=== PATIENT | male | born 1950 ===

== ENCOUNTER 2019-08-10 07:26 | Emergency (ER) | payer MEDICARE ==
[~2019-08-10] VITALS: Ht 182.9 cm; Wt 83.9 kg
[2019-08-10] MEDS ORDERED: LOVA40 PO (08:01)
[2019-08-10 09:09] LABS: Source, Urine Clean Catch
[2019-08-10 09:18] LABS: Bilirubin, Urine Neg (Neg); Blood, Urine Neg (Neg); Glucose Qualitative, Urine Neg (Neg); Ketones, Urine Neg (Neg); Leukocyte Esterase, Urine Neg (Neg); Nitrite, Urine Neg (Neg); Protein, Urine Neg (Neg); Specific Gravity, Urine 1.005 (1.003-1.022); Urobilinogen, Urine NORM (Normal)
[2019-08-10 09:30] LABS: Appearance, Urine Clear (Clear); Color, Urine Pale Yellow (P-Yellow)
[2019-08-10 09:39] LABS: BASOPHILS ABSOLUTE AUTO 0.06 K/mm3 (0.00-0.23); BASOPHILS PERCENT AUTO 1 % (0-2); EOSINOPHILS ABSOLUTE AUTO 0.02 K/mm3 (0.00-0.68); EOSINOPHILS PERCENT AUTO 0 % (0-6); Hematocrit 42.1 % (37.0-53.0); Hemoglobin 14.3 g/dL (13.5-17.5); IMMATURE GRAN ABSOLUTE AUTO 0.03 K/mm3 (0.00-0.10); IMMATURE GRAN PERCENT AUTO 0 % (0-1); LYMPHOCYTES ABSOLUTE AUTO 1.61 K/mm3 (0.84-5.20); LYMPHOCYTES PERCENT AUTO 15 % (21-46); MONOCYTES ABSOLUTE AUTO 0.57 K/mm3 (0.16-1.47); MONOCYTES PERCENT AUTO 5 % (4-13); Mean Corpuscular HGB 28.2 pg (26.0-34.0); Mean Corpuscular Volume 83 fL (80-100); Mean Platelet Volume 9.3 fL (9.1-12.4); NEUTROPHILS ABSOLUTE AUTO 8.39 K/mm3 (1.96-9.15); NEUTROPHILS PERCENT AUTO 79 % (41-73); Platelet Count 238 K/mm3 (150-400); RDW Coefficient Variation 13.1 % (11.7-14.2); RDW Standard Deviation 39.4 fL (35.1-46.3); Red Blood Cell Count 5.07 M/mm3 (4.30-5.90); White Blood Cell Count 10.68 K/mm3 (4.00-11.30)
[2019-08-10 09:58] LABS: Alanine Aminotransfer (ALT/SGP 18 U/L (12-78); Albumin, Blood 3.8 g/dL (3.4-5.0); Albumin/Globulin Ratio 1.1 (0.8-1.8); Alk Phos 114 U/L (50-136); Anion Gap 6 mmol/L (6-16); Aspartate Aminotrans (AST/SGOT 19 U/L (12-37); Bilirubin, Total 0.7 mg/dL (0.1-1.0); Blood Urea Nitrogen 12 mg/dL (8-24); Bun/Creatinine Ratio 12.8 (12.0-20.0); CO2, Blood 23 mmol/L (21-32); Calcium, Blood 9.3 mg/dL (8.5-10.1); Chloride, Blood 109 mmol/L (98-108); Creatinine, Blood 0.94 mg/dL (0.60-1.20); Globulin, Blood 3.4 g/dL (2.2-4.0); Glomerular Filtration Rate >60 (60-); Glucose, Blood 111 mg/dL (70-99); Potassium, Blood 3.7 mmol/L (3.5-5.5); Sodium, Blood 138 mmol/L (136-145); Total Protein, Blood 7.2 g/dL (6.4-8.2)
[2019-08-10] MEDS ORDERED: Flomax0.4 MG PO (10:10)
== END 2019-08-10 11:15 | disposition home or self-care (01) ==
LOC: ER 07:26
PROVIDERS: Physician Assistant
DX: R33.9 Retention of urine, unspecified (principal); Z88.8 Allergy status to other drugs, medicaments and biological substances; Z88.5 Allergy status to narcotic agent; Z79.899 Other long term (current) drug therapy
CPT/HCPCS: 51702; 51798; 80053; 81003; 85025; 99283-25

== ENCOUNTER 2021-05-12 12:48 | Inpatient (IN) | payer OTHER, MEDICARE ==
[~2021-05-12] VITALS: Ht 182.9 cm; Wt 83.9 kg
[~2021-05-12 12:48] MED LIST: Flomax0.4 MG PO; LOVA40 PO
[2021-05-12] MEDS ORDERED: ACET325 PO (13:30)
[2021-05-12] MEDS ORDERED: ENOX40I SC (13:31)
[2021-05-12] MEDS ORDERED: BISA10S PR (13:31)
[2021-05-12] MEDS ORDERED: ATOR40TA PO (13:31)
[2021-05-12] MEDS ORDERED: KEPPRA250 M2 PO (13:32)
[2021-05-12] MEDS ORDERED: LISI10 PO (13:32)
[2021-05-12] MEDS ORDERED: OXYC5 PO (13:35)
[2021-05-12 14:01] LABS: Hematocrit 31.6 % (37.0-53.0); Hemoglobin 10.3 g/dL (13.5-17.5); Mean Corpuscular HGB 30.7 pg (26.0-34.0); Mean Corpuscular HGB Conc 32.6 g/dL (31.5-36.5); Mean Corpuscular Volume 94 fL (80-100); Mean Platelet Volume 9.3 fL (9.1-12.4); Platelet Count 218 K/mm3 (150-400); RDW Coefficient Variation 14.2 % (11.7-14.2); RDW Standard Deviation 49.1 fL (35.1-46.3); Red Blood Cell Count 3.36 M/mm3 (4.30-5.90); White Blood Cell Count 8.63 K/mm3 (4.00-11.30)
[2021-05-12 14:27] LABS: Alanine Aminotransfer (ALT/SGP 16 U/L (12-78); Albumin, Blood 2.8 g/dL (3.4-5.0); Albumin/Globulin Ratio 0.8 (0.8-1.8); Alk Phos 113 U/L (50-136); Anion Gap 7 mmol/L (6-16); Aspartate Aminotrans (AST/SGOT 13 U/L (12-37); Bilirubin, Total 0.5 mg/dL (0.1-1.0); Blood Urea Nitrogen 15 mg/dL (8-24); CO2, Blood 27 mmol/L (21-32); Calcium, Blood 9.2 mg/dL (8.5-10.1); Chloride, Blood 105 mmol/L (98-108); Creatinine, Blood 0.79 mg/dL (0.60-1.20); Globulin, Blood 3.4 g/dL (2.2-4.0); Glomerular Filtration Rate >60 (60-); Glucose, Blood 82 mg/dL (70-99); Potassium, Blood 4.2 mmol/L (3.5-5.5); Sodium, Blood 139 mmol/L (136-145); Total Protein, Blood 6.2 g/dL (6.4-8.2); Troponin I <0.015 ng/mL (0.000-0.040)
[2021-05-12 14:35] LABS: Source, Urine Catheter
[2021-05-12 14:39] LABS: Appearance, Urine Hazy (Clear); Bilirubin, Urine Neg (Neg); Blood, Urine 3+ (Neg); Glucose Qualitative, Urine Neg (Neg); Ketones, Urine Neg (Neg); Leukocyte Esterase, Urine 3+ (Neg); Nitrite, Urine Pos (Neg); Protein, Urine 1+ (Neg); Urobilinogen, Urine NORM (Normal)
[2021-05-12 14:54] LABS: BASOPHILS ABSOLUTE MAN 0.08 K/mm3 (0.00-0.23); BASOPHILS PERCENT MAN 1 % (0-2); EOSINOPHILS PERCENT MAN 0 % (0-6); LYMPHOCYTES % ATYPICAL MANUAL 1 % (0-0); LYMPHOCYTES ABSOLUTE MAN 3.62 K/mm3 (0.84-5.20); LYMPHOCYTES PERCENT MAN 41 % (21-46); MONOCYTES ABSOLUTE MAN 0.17 K/mm3 (0.16-1.47); MONOCYTES PERCENT MAN 2 % (4-13); NEUTROPHILS ABSOLUTE MAN 4.74 K/mm3 (1.96-9.15); SEG NEUTROPHILS PERCENT MAN 55 % (41-73); TOTAL CELLS COUNTED 100
[2021-05-12 14:57] LABS: Color, Urine Pale Yellow (P-Yellow)
[2021-05-12 14:59] LABS: Amorphous Light (0-Heavy)
[2021-05-12 15:02] LABS: Red Blood Cells, Urine 0-2 /hpf (0-2); White Blood Cells, Urine TNTC /hpf (0-5)
[2021-05-12 15:03] LABS: Bacteria Many /hpf; Squamous Epithelial Cells Rare /hpf (Few); Transitional Epithelial Cells Rare /hpf (0-Rare)
[2021-05-12] MEDS ORDERED: DOCUZEN 8.6-501 EACH PO (16:12)
[2021-05-12] MEDS ORDERED: ARTIFICIAL SALIVA PO (16:13)
--- NOTE | 2021-05-12 19:22 | NUR ---
SHIFT SUMMARY: PATIENT ADMIT FROM ED THIS SHIFT. PT A&O; CALM AND COOPERATIVE WITHCARE. WEAK & HYPOTENSIVE; CURRENTLY ON BEDREST. REHYDRATION & IV ABX CONTINUING. REPORT GIVEN TO ONCRONAL RN.
--- NOTE | 2021-05-13 06:03 | NUR ---
SHIFT SUMMARY ADMITTED FOR UTI. AOX4. REPORTS NEW DIFFICULTY c SPEECH DURING ASSESSMENT, SLOW TO RESPOND & SLURRED. RUE FLACCID. RLE GROSS MOVEMENT ONLY. 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 VSS. BP SLIGHTY LOW @ADMIT, RECIEVING NS @75ML. TELE NSR @95. DENIES SOB, N/V. OR PAIN. 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 BEDREST. CALL LIGHT IN REACH & PT ABLE TO MAKE NEEDS KNOWN. WCTM.
--- NOTE | 2021-05-13 17:38 | NUR ---
ADMIT: 05/12/21 DISCHARGE: DX: Complicated UTI, hypotension CC: kwilcox DUSTIN CALL: RESIDENCE: currently at [facility] CAREGIVER: Sujey Vegas, Spouse / Partner, DX: HTN, SVT, TIA, cancer case, see list DME: cervical collar CCM: none HOME HEALTH: none SUMMARY: 05/13/21- per chart review with Dr. Patel, pt is being started on antibiotics and there is no plan for d/c at this time. -jeffery
--- NOTE | 2021-05-13 18:35 | NUR ---
SHIFT SUMMARY PT AxOx4. PLEASANT AND COOPERATIVE WITH CARE. PT HAS SIGNIFICANT RIGHT SIDE DEFICITS AND OCCASIONAL SPEECH IMPAIRMENT. DR ORDERED RIVERA CATH TO DC TODAY AND RIVERA DC'D AT APPROX 1700. ORDERS PLANCED FOR BLADDER SCAN MONITORING WITH STRAIGHT CATH NEEDED. PT HAS NOT SPONTANEOUSLY VOIDED OF SHIFT CHANGE. PER LINE INSTALLATION SUPERVISOR, TELE RUNNING AT WITH BBB 100-110'S. PHYSICAL AND OCCUPATIONAL THERAPY WORKING WITH PATIENT. PT WAS ABLE TO STAND UP DURING THERAPY, BUT STILL ADVISES NURSING STAFF TO KEEP LIFT/BEDREST UNTIL THEY ARE ABLE TO STAND-PIVOT SUCCESSFULLY, WHICH IS EXPECTED TOMORROW. , QUINTEN, SPOKE WITH DR FORD ON PHONE TODAY ABOUT PLAN OF CARE. PT CURRENTLY RESTING IN BED WITH CALL LIGHT IN REACH. VITALS REVIEWED. DENIES ANY NEEDS AT THIS TIME.
--- NOTE | 2021-05-14 06:47 | NUR ---
SHIFT SUMMARY AOX4. VSS. DENIES PAIN, N/V OR SOB. TELE SR @80. RUE FLACCID, RLE GROSS MOVEMENT. SPEECH SLOW & SLURRED @TIMES. MIGUEL DC'D @1700 ON05/13/21, PT HAS HAD MULTIPLE INCONT VOIDS SINCE. POST BLADDER SCAN SHOWED 158ML URINE IN BLADDER. 2 INCONT BM THIS SHIFT. AWAITING SAFE DC PLAN. CALL LIGHT IN REACH & PT ABLE TO MAKE NEEDS KNOWN.
--- NOTE | 2021-05-14 15:11 | NUR ---
05/14/21- SPOKE WITH OVER THE PHONE, SHE WAS WONDERING IF FACILITY IN [place] WAS SKILLED FACILITY. HER INSURANCE STATED THAT THEY WILL PAY FOR 20 DAYS AT SNF REHAB. CONFIRMED WITH HER THAT THIS IS A SKILLED REHAB FACILITY. CALLED [facility] IN [place] AND [facility] TO SEE IF THEY RECEIVED PACKET AND IF THEY HAD A CHANCE TO REVIEW PT FOR PLACEMENT. -MARYELLEN 05/14/21- SPOKE WITH ON THE PHONE. SHE REPORTS THAT PRIOR TO COMING INTO THE HOSPITAL, PT WAS VERY INDEPENDENT AT HOME. HE IS RETIRED AND LIVES AT HOME WITH HIS , EVER. THEIR HOME IS A SINGLE-STORY HOME WITH ALL WORKING UTITILITES. THERE ARE 2 STEPS INTO THE HOME AND IF/WHEN THE PT GOES HOME IS AGREEABLE TO RENTING A RAMP FROM [employer]. SHE ALSO REPORTS THAT SHE WILL NEED TO RENT A WHEELCHAIR. REPORTS THAT PT HAS A LIVING WILL. THEIR PHARMACY IS [facility] IN [place] AND PT MANAGED HIS OWN MEDICATIONS. WOULD LIKE TO SEE IF PT CAN GET INTO IRU IN [place], IF HE IS NOT ACCEPTED, SHE WOULD LIKE TO HAVE HIM COME HOME WITH HOME HEALTH SERVICES THROUGH [facility]. SENT PACKET TO IRU IN [place] AND WILL UPDATE THE ONCE WE HAVE ANSWER FROM FACILITY -MARYELLEN
--- NOTE | 2021-05-14 18:25 | NUR ---
NO ACUTE CHANGES. PT WORKED WITH PT AND OT THIS SHIFT. MENTATION IMPROVING ACCORDING TO PRINTING SCREEN ASSEMBLER WHO HAD HIM YESTERDAY. PT VOIDING. NO SYNCOPAL EPISODES REPORTED. AT BEDSIDE. CALL LIGHT WITHIN REACH.
--- NOTE | 2021-05-15 05:38 | NUR ---
SHIFT SUMMARY- PT. S/P BRAIN TUMOR REMOVAL. A&O, WITH R SIDED DEFICITS, LEG BRACE TO RLE IN PLACE. PT. ABLE TO MAKE NEEDS KNOWN. SLEPT ON/OFF DURING THE NIGHT. INCONT OF URINE, ATTENDS ON. HAD NO COMPLAINTS OF PAIN OR DISCOMFORT T/O THE NIGHT, VSS. CALL LIGHT WITHINR REACH AND SIDE RAILS UPX2. WILL CONT TO MONITOR.
[2021-05-15 09:25] LABS: Anion Gap 5 mmol/L (6-16); Blood Urea Nitrogen 13 mg/dL (8-24); Bun/Creatinine Ratio 16.8 (12.0-20.0); CO2, Blood 27 mmol/L (21-32); Calcium, Blood 9.1 mg/dL (8.5-10.1); Chloride, Blood 107 mmol/L (98-108); Creatinine, Blood 0.77 mg/dL (0.60-1.20); Glomerular Filtration Rate >60 (60-); Glucose, Blood 105 mg/dL (70-99); Potassium, Blood 3.9 mmol/L (3.5-5.5); Sodium, Blood 139 mmol/L (136-145)
--- NOTE | 2021-05-15 12:53 | NUR ---
05/15/21- Spoke with and she is agreeable to send packet to [place] for IRU. Packet created and faxed to [facility].- jeffery
--- NOTE | 2021-05-15 18:01 | NUR ---
PATIENT A/OX4, MILD EXPRESSIVE APHASIA WITH WORD FINDING DIFFICULTY. DENIES ANY PAIN. UP TO CHAIR TODAY WITH SIT STAND LIFT. VSS, ON RA. R ARM FLACCID, R LEG WEAK. TOLERATING MS DIET. INCONTINENT OF BOWEL/BLADDER. PLAN IS TO DC TO SNF [place]. CALM AND COOPERATIVE WITH CARE, USES CALL LIGHT APPROPRIATELY FOR ASSISTANCE.
[2021-05-16 01:37] LABS: Source, Urine Catheter
[2021-05-16 01:57] LABS: Bilirubin, Urine Neg (Neg); Blood, Urine 5+ (Neg); Glucose Qualitative, Urine Neg (Neg); Ketones, Urine Neg (Neg); Leukocyte Esterase, Urine 1+ (Neg); Nitrite, Urine Neg (Neg); Protein, Urine Neg (Neg); Urobilinogen, Urine NORM (Normal)
[2021-05-16 01:58] LABS: Appearance, Urine Hazy (Clear); Color, Urine Pale Yellow (P-Yellow)
[2021-05-16 02:03] LABS: Bacteria Few /hpf; Red Blood Cells, Urine 0-2 /hpf (0-2); Squamous Epithelial Cells Few /hpf (Few)
[2021-05-16 02:04] LABS: Amorphous Mod (0-Heavy)
--- NOTE | 2021-05-16 06:31 | NUR ---
SHIFT SUMMARY- PT. HAD COMPLAINTS OF BLADDER PRESSURE AND DISCOMFORT LAST NIGHT. PERFORMED BLADDER SCAN PER ORDER WITH RESULT OF 774. INSERTED STRAIGHT CATH, OUTPUT OF 800ML. PT. HAD MULTIPLE INCONT VOIDS IN ATTENDS, BUT CONTINUED TO C/O PRESSURE AND DISCOMFORT. REPEAT BLADDER SCAN DONE PVR WITH RESULT OF >600. NOTIFIED HOSPITALIST, RECEIVED ORDER FOR RIVERA CATHETER. PLACED RIVERA PER ORDER, PT. TOLERATED WELL. IMMEDIATE OUTPUT OF 850MLS. PT. REPORTED RELIEF, APPEARED TO HAVE SLEPT COMFORTABLY THE REST OF THE NIGHT, NO APPARENT DISTRESS NOTED. NO COMPLAINTS OF PAIN OR DISCOMFORT, VSS. CALL LIGHT WITHIN REACH AND SIDE RAILS UPX2. WILL CONT TO MONITOR.
[2021-05-16 08:03] LABS: Anion Gap 4 mmol/L (6-16); Blood Urea Nitrogen 13 mg/dL (8-24); Bun/Creatinine Ratio 16.3 (12.0-20.0); CO2, Blood 28 mmol/L (21-32); Chloride, Blood 109 mmol/L (98-108); Glomerular Filtration Rate >60 (60-); Glucose, Blood 97 mg/dL (70-99); Potassium, Blood 3.6 mmol/L (3.5-5.5); Sodium, Blood 141 mmol/L (136-145)
[2021-05-16 09:09] LABS: Hematocrit 28.9 % (37.0-53.0); Hemoglobin 9.6 g/dL (13.5-17.5); Mean Corpuscular HGB 31.3 pg (26.0-34.0); Mean Corpuscular HGB Conc 33.2 g/dL (31.5-36.5); Mean Corpuscular Volume 94 fL (80-100); Mean Platelet Volume 9.9 fL (9.1-12.4); Platelet Count 256 K/mm3 (150-400); RDW Coefficient Variation 14.3 % (11.7-14.2); RDW Standard Deviation 48.9 fL (35.1-46.3); Red Blood Cell Count 3.07 M/mm3 (4.30-5.90); White Blood Cell Count 9.89 K/mm3 (4.00-11.30)
[2021-05-16 09:27] LABS: TOTAL CELLS COUNTED 100
[2021-05-16 09:30] LABS: BAND PERCENT MAN 1 % (0-8); BASOPHILS ABSOLUTE MAN 0.29 K/mm3 (0.00-0.23); BASOPHILS PERCENT MAN 3 % (0-2); EOSINOPHILS ABSOLUTE MAN 0.19 K/mm3 (0.00-0.68); EOSINOPHILS PERCENT MAN 2 % (0-6); LYMPHOCYTES ABSOLUTE MAN 3.95 K/mm3 (0.84-5.20); LYMPHOCYTES PERCENT MAN 40 % (21-46); MONOCYTES ABSOLUTE MAN 0.49 K/mm3 (0.16-1.47); MONOCYTES PERCENT MAN 5 % (4-13); NEUTROPHILS ABSOLUTE MAN 4.94 K/mm3 (1.96-9.15); SEG NEUTROPHILS PERCENT MAN 49 % (41-73)
--- NOTE | 2021-05-16 14:00 | NUR ---
05/16/21- Called and updated on status with IRU. She acknowledged understanding. -[email or web address] call from [facility], they are reviewing pt and they requested updated therapy notes. They look they could take the pt early next week. They do not admit over the weekend.- Bryan for [facility] in [place] to see if they received pt's packet and were able to review him. -jeffery
--- NOTE | 2021-05-16 16:14 | NUR ---
NO ACUTE CHANGES THIS SHIFT. PLAN IS TO DC TO SNF IN [place] OR [place] WHEN ACCEPTED. UP TO CHAIR TODAY USING SIT TO STAND LIFT. TOLERATING REGULAR DIET. RIVERA PLACED LAST NIGHT DUE TO RETENTION. PATIENT A/OX4 AND CALLS APPROPRIATELY FOR ASSISTANCE.
--- NOTE | 2021-05-17 03:57 | NUR ---
SHIFT SUMMARY ADMITTED FOR COMPLICATED UTI. FULL CODE. PLAN IS FOR PLACEMENT IN REHABILITATION FACILITY. HE IS FROM [facility]. RIVERA IN PLACE DUE TO RETENTION. HE IS TO DC WITH RIVERA, AND SEE UROLOGY OUTPT. 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 RIGHT ARM IS FLACCID, RIGHT LEG IS WEAK. [id number] LIFT FOR TRANSFERS. KEPPRA IS SCHEDULED TO PREVENT SEIZURES. BP'S ARE SOFT.
--- NOTE | 2021-05-18 04:26 | NUR ---
Shift Summary A/Ox3, pleasant and cooperative. Slept well through the night. Leroy patent and draining to gravity. Able to wiggle some fingers on R arm and help with repositioning. No acute changes, WCTM.
--- NOTE | 2021-05-19 05:09 | NUR ---
SHIFT SUMMARY NO ACUTE CHANGES THIS SHIFT. AOX4. VSS. DENIES PAIN, N/V OR SOB. HAS MINIMAL GROSS MOVEMENT RUE WHICH IS NEW & A WEAK COMPUTER SYSTEMS AUDITOR c R HAND, PT APPEARED SURPRISED WHEN ABLE TO DO THESE TASKS. STATES IMPROVEMENT. RLE GROSS MOVEMENT & ABLE TO MINIMALLY MOVE TOES. RIVERA DRAINING & PATENT. AWAITING PLACEMENT. CALL LIGHT IN REACH. WCTM.
[2021-05-19 05:25] LABS: Hematocrit 29.6 % (37.0-53.0); Hemoglobin 9.7 g/dL (13.5-17.5); Mean Corpuscular HGB Conc 32.8 g/dL (31.5-36.5); Mean Corpuscular Volume 95 fL (80-100); Mean Platelet Volume 9.5 fL (9.1-12.4); Platelet Count 280 K/mm3 (150-400); RDW Coefficient Variation 14.5 % (11.7-14.2); RDW Standard Deviation 49.8 fL (35.1-46.3); Red Blood Cell Count 3.13 M/mm3 (4.30-5.90); White Blood Cell Count 12.13 K/mm3 (4.00-11.30)
[2021-05-19 05:53] LABS: Anion Gap 4 mmol/L (6-16); Blood Urea Nitrogen 22 mg/dL (8-24); Bun/Creatinine Ratio 28.9 (12.0-20.0); CO2, Blood 26 mmol/L (21-32); Calcium, Blood 8.7 mg/dL (8.5-10.1); Chloride, Blood 109 mmol/L (98-108); Creatinine, Blood 0.76 mg/dL (0.60-1.20); Glomerular Filtration Rate >60 (60-); Glucose, Blood 100 mg/dL (70-99); Potassium, Blood 4.1 mmol/L (3.5-5.5); Sodium, Blood 139 mmol/L (136-145)
[2021-05-19 06:07] LABS: BASOPHILS PERCENT MAN 0 % (0-2); EOSINOPHILS ABSOLUTE MAN 0.12 K/mm3 (0.00-0.68); EOSINOPHILS PERCENT MAN 1 % (0-6); LYMPHOCYTES ABSOLUTE MAN 3.63 K/mm3 (0.84-5.20); LYMPHOCYTES PERCENT MAN 30 % (21-46); MONOCYTES ABSOLUTE MAN 0.12 K/mm3 (0.16-1.47); MONOCYTES PERCENT MAN 1 % (4-13); NEUTROPHILS ABSOLUTE MAN 8.24 K/mm3 (1.96-9.15); SEG NEUTROPHILS PERCENT MAN 68 % (41-73); TOTAL CELLS COUNTED 100
--- NOTE | 2021-05-19 18:20 | NUR ---
PT RESTING IN BED AFTER DINNER, MAKING NO COMPLAINTS AT THIS TIME. PT ALERT/ORIENTED X4 AND USES CALL LIGHT APPROPRIATELY, NO IV ACCESS ORDER IN. PT WAS MED AND CAREPLAN COMPLAINT THIS SHIFT WITH FAMILY IN ROOM. PT WOKED WITH PT AND CONTINUES TO TRANSFER WITH SIT TO STAND AND MIN. ASSIST. PT LOOKS FORWARD TO PLACEMENT. WILL CONT. TO MONITOR.
[2021-05-20 05:06] LABS: BASOPHILS ABSOLUTE AUTO 0.03 K/mm3 (0.00-0.23); BASOPHILS PERCENT AUTO 0 % (0-2); EOSINOPHILS ABSOLUTE AUTO 0.02 K/mm3 (0.00-0.68); EOSINOPHILS PERCENT AUTO 0 % (0-6); Hematocrit 29.2 % (37.0-53.0); Hemoglobin 9.6 g/dL (13.5-17.5); IMMATURE GRAN ABSOLUTE AUTO 0.06 K/mm3 (0.00-0.10); IMMATURE GRAN PERCENT AUTO 1 % (0-1); LYMPHOCYTES ABSOLUTE AUTO 5.22 K/mm3 (0.84-5.20); LYMPHOCYTES PERCENT AUTO 44 % (21-46); MONOCYTES ABSOLUTE AUTO 2.37 K/mm3 (0.16-1.47); MONOCYTES PERCENT AUTO 20 % (4-13); Mean Corpuscular HGB Conc 32.9 g/dL (31.5-36.5); Mean Corpuscular Volume 94 fL (80-100); Mean Platelet Volume 9.5 fL (9.1-12.4); NEUTROPHILS ABSOLUTE AUTO 4.05 K/mm3 (1.96-9.15); NEUTROPHILS PERCENT AUTO 34 % (41-73); Platelet Count 270 K/mm3 (150-400); RDW Coefficient Variation 14.6 % (11.7-14.2); RDW Standard Deviation 49.7 fL (35.1-46.3); White Blood Cell Count 11.75 K/mm3 (4.00-11.30)
[2021-05-20 05:30] LABS: Alanine Aminotransfer (ALT/SGP 37 U/L (12-78); Albumin/Globulin Ratio 1.2 (0.8-1.8); Alk Phos 72 U/L (50-136); Anion Gap 7 mmol/L (6-16); Aspartate Aminotrans (AST/SGOT 15 U/L (12-37); Bilirubin, Total 0.4 mg/dL (0.1-1.0); Blood Urea Nitrogen 23 mg/dL (8-24); Bun/Creatinine Ratio 28.5 (12.0-20.0); CO2, Blood 24 mmol/L (21-32); Calcium, Blood 8.7 mg/dL (8.5-10.1); Chloride, Blood 108 mmol/L (98-108); Creatinine, Blood 0.81 mg/dL (0.60-1.20); Globulin, Blood 2.6 g/dL (2.2-4.0); Glomerular Filtration Rate >60 (60-); Glucose, Blood 92 mg/dL (70-99); Potassium, Blood 4.1 mmol/L (3.5-5.5); Sodium, Blood 139 mmol/L (136-145); Total Protein, Blood 5.6 g/dL (6.4-8.2)
--- NOTE | 2021-05-20 06:09 | NUR ---
SHIFT SUMMARY NO ACUTE CHANGES THIS SHIFT, NO C/O ANY KIND, SLEPT T/O THE NIGHT & SLEEPING AT THIS TIME, CALL LIGHT IN REACH, BED ALARM ACTIVE, WILL CONT TO MONITOR UNTIL REPORT GIVEN TO DAY RN.
--- NOTE | 2021-05-20 14:29 | NUR ---
met pt. in bed relaxed and is doing much better ,pt. said encouraged pt. and offered prayers
--- NOTE | 2021-05-20 18:23 | NUR ---
SHIFT SUMMARY. A&OX4, PLEASANT AND COOPERATIVE WITH CARE. PT DENIES SOB, N/V, AND PAIN. PT REPORTS R SIDED WEAKNESS HAS IMPROVED SINCE STEROID HAS BEEN RESTARTED. PT IS ABLE TO MOVE R FINGERS AND TOES, R ARM STILL FLACCID. PT PARTICIPATED WITH PT/OT AND TOLERATED WELL. PT REQUESTED NOT TO HAVE LABS DRAWN UNTIL AFTER 0600, LAB NOTIFIED. NO OTHER CHANGES OR CONCERNS.
--- NOTE | 2021-05-20 22:08 | NUR ---
PT REFUSING ATTENDS CHECK AND CHANGE, NURSE NOTIFIED
--- NOTE | 2021-05-20 22:32 | NUR ---
PT with brain tumor removal in March 2021 had rt sided hemiparesis after surgery. He has flaccid rt ue with minimal movement rt le. AFO in place rt LE. PT irritable with assessment & says he will not allow any staff to wake him or draw labs until after 6 AM. Planning to DC to [facility] neuro rehab unit, has DC order, waiting for bed at facility. Leroy cath patent draining cloudy yellow urine. Was incontinent of bowel earlier in shift attends in place.
--- NOTE | 2021-05-21 04:58 | NUR ---
70 year old Male admitted 05/13/21 with rt sided hemiparesis afer brain tumor removal per PT. Alert but irritable, PT demands no cares between HS & 06am. Note to door & requests not to waken honored. PT very irritable with neuro assess at HS. DC order to stroke rehab unit, awaiting bed at [facility] in rehab unit. Cintinues with rt le AFO & rt UE, RT LE weakness.
--- NOTE | 2021-05-21 05:36 | NUR ---
PT REFUSED ALL CARE, INCLUDING VS, UNTIL AFTER 06:00 05/21/21. NURSE NOTIFIED
--- NOTE | 2021-05-21 06:22 | NUR ---
pt refused attends check and change, nurse notified
[2021-05-21 06:29] LABS: Hemoglobin 10.4 g/dL (13.5-17.5); Mean Corpuscular HGB 31.7 pg (26.0-34.0); Mean Corpuscular HGB Conc 33.5 g/dL (31.5-36.5); Mean Corpuscular Volume 95 fL (80-100); Mean Platelet Volume 9.1 fL (9.1-12.4); Platelet Count 285 K/mm3 (150-400); RDW Coefficient Variation 14.8 % (11.7-14.2); Red Blood Cell Count 3.28 M/mm3 (4.30-5.90); White Blood Cell Count 12.36 K/mm3 (4.00-11.30)
[2021-05-21 06:32] LABS: Alanine Aminotransfer (ALT/SGP 37 U/L (12-78); Albumin, Blood 3.1 g/dL (3.4-5.0); Albumin/Globulin Ratio 1.2 (0.8-1.8); Alk Phos 73 U/L (50-136); Anion Gap 6 mmol/L (6-16); Aspartate Aminotrans (AST/SGOT 13 U/L (12-37); Bilirubin, Total 0.4 mg/dL (0.1-1.0); Blood Urea Nitrogen 24 mg/dL (8-24); Bun/Creatinine Ratio 29.7 (12.0-20.0); CO2, Blood 25 mmol/L (21-32); Calcium, Blood 8.7 mg/dL (8.5-10.1); Chloride, Blood 109 mmol/L (98-108); Creatinine, Blood 0.81 mg/dL (0.60-1.20); Globulin, Blood 2.6 g/dL (2.2-4.0); Glomerular Filtration Rate >60 (60-); Glucose, Blood 93 mg/dL (70-99); Sodium, Blood 140 mmol/L (136-145); Total Protein, Blood 5.7 g/dL (6.4-8.2)
[2021-05-21 07:03] LABS: BASOPHILS PERCENT MAN 0 % (0-2); EOSINOPHILS ABSOLUTE MAN 0.12 K/mm3 (0.00-0.68); EOSINOPHILS PERCENT MAN 1 % (0-6); TOTAL CELLS COUNTED 100
[2021-05-21 07:07] LABS: LYMPHOCYTES ABSOLUTE MAN 5.06 K/mm3 (0.84-5.20); LYMPHOCYTES PERCENT MAN 41 % (21-46); MONOCYTES ABSOLUTE MAN 0.12 K/mm3 (0.16-1.47); MONOCYTES PERCENT MAN 1 % (4-13); NEUTROPHILS ABSOLUTE MAN 7.04 K/mm3 (1.96-9.15); SEG NEUTROPHILS PERCENT MAN 57 % (41-73)
--- NOTE | 2021-05-21 18:09 | NUR ---
PT IS ALERT AND ORIENTED X4, RESTING IN BED EATING DINNER, MAKING NO COMPLAINTS AT THIS TIME. PT REMAINS A 2 PERSON PIVOT WITH WALKER PLUS R ARM BRACE TO AND FROM CHAIR TO BED. NO IV ORDER IN. BED IN LOW POSITION AND CALL LIGHT WITHIN REACH. STAFF WILL CONT TO MONITOR.
--- NOTE | 2021-05-22 07:20 | NUR ---
PT continues to insist staff not interupt him from HS to 6 AM. Refused 0200 am vital signs & bowles cath care. Bowles drained large amt of urine & PT kept telling RN TRAINING to get out & expresses anger for being woken prior to 6 AM. PT made good progress using rt UE & RT LE. Pleasant last evening but very irritable this AM.
[2021-05-22 07:22] LABS: Hematocrit 33.4 % (37.0-53.0); Hemoglobin 10.9 g/dL (13.5-17.5); Mean Corpuscular HGB 31.1 pg (26.0-34.0); Mean Corpuscular HGB Conc 32.6 g/dL (31.5-36.5); Mean Corpuscular Volume 95 fL (80-100); Mean Platelet Volume 8.9 fL (9.1-12.4); Platelet Count 287 K/mm3 (150-400); RDW Coefficient Variation 15.1 % (11.7-14.2); RDW Standard Deviation 51.8 fL (35.1-46.3); White Blood Cell Count 11.61 K/mm3 (4.00-11.30)
[2021-05-22 07:56] LABS: Alanine Aminotransfer (ALT/SGP 35 U/L (12-78); Albumin, Blood 3.4 g/dL (3.4-5.0); Albumin/Globulin Ratio 1.1 (0.8-1.8); Alk Phos 75 U/L (50-136); Anion Gap 5 mmol/L (6-16); Aspartate Aminotrans (AST/SGOT 11 U/L (12-37); Bilirubin, Total 0.5 mg/dL (0.1-1.0); Blood Urea Nitrogen 24 mg/dL (8-24); Bun/Creatinine Ratio 31.1 (12.0-20.0); CO2, Blood 27 mmol/L (21-32); Chloride, Blood 108 mmol/L (98-108); Creatinine, Blood 0.77 mg/dL (0.60-1.20); Glomerular Filtration Rate >60 (60-); Glucose, Blood 89 mg/dL (70-99); Sodium, Blood 140 mmol/L (136-145); Total Protein, Blood 6.4 g/dL (6.4-8.2)
[2021-05-22 08:26] LABS: BASOPHILS ABSOLUTE MAN 0.11 K/mm3 (0.00-0.23); BASOPHILS PERCENT MAN 1 % (0-2); EOSINOPHILS PERCENT MAN 0 % (0-6); LYMPHOCYTES % ATYPICAL MANUAL 2 % (0-0); LYMPHOCYTES ABSOLUTE MAN 7.31 K/mm3 (0.84-5.20); LYMPHOCYTES PERCENT MAN 61 % (21-46); MONOCYTES ABSOLUTE MAN 0.92 K/mm3 (0.16-1.47); MONOCYTES PERCENT MAN 8 % (4-13); NEUTROPHILS ABSOLUTE MAN 3.25 K/mm3 (1.96-9.15); SEG NEUTROPHILS PERCENT MAN 28 % (41-73); TOTAL CELLS COUNTED 100
--- NOTE | 2021-05-22 19:03 | NUR ---
PT RESTING IN BED EATING DINNER, ALERT AND ORIENTED X4 MAKING NO COMPLAINTS AT THIS TIME. NURSE NOTIFY IN CHART RE OK NOT TO ENER BETWEEN 2200 AND 0600 SO PT CAN SLEEP. NO IV ORDER IN. BED IN LOW POSITION AND CALL LIGHT WITHIN REACH. STAFF WILL CONT TO MONITOR.
--- NOTE | 2021-05-23 14:06 | NUR ---
05/22/21- SPOKE WITH PT AND PROVIDED HIM A LIST OF SNF FACILITIES. LET HIM KNOW THAT A FEW PLACES ARE REVIEWING HIM BUT MANY DON'T HAVE BEDS. PATIENT WOULD LIKE TO GO HOME WITH HOME HEALTH SERVICES. PT WOULD LIKE A FRONT-WHEELED WALKER WITH ARM REST. [facility] DOES NOT HAVE THESE, WILL ORDER THROUGH [facility]. THE HOPE IS THAT ONE OF THE FACILITIES WILL CALL BACK AND PT COULD GO TO REHAB FROM HOME. -MARYELLEN
[2021-05-23] MEDS ORDERED: TAMS.4ER PO (15:47)
[2021-05-23] MEDS ORDERED: DEXA4 PO (15:57)
--- NOTE | 2021-05-23 16:17 | NUR ---
DISCHARGE NOTE PT IS AO. PT DOES NOT HAVE IV ACCESS. THIS RN REVIEWED DC INSTRUCTIONS WITH PT WHO VERBALIZED UNDERSTANDING. PT DRESSED SELF IN HOME CLOTHING. PT BELONGINGS GATHERED. WALKER DROPPED OFF AT PT ROOM PRIOR TO DC. PT ASSISTED INTO WHEELCHAIR BY THIS RN. PT WHEELED OFF UNIT BY TRANSPORTER AND THIS RN. PT LEFT UNIT WITH BELONGINGS AND WALKER PRESENT.
--- NOTE | 2021-05-24 10:08 | NUR ---
[facility] CALLED PTS CALLED THEM REQUESTING REFILL OF KEPPRA AND FLOMAX. SPOKE WITH DR BIENVENIDO MCCAULEY FOR 30 DAY SUPPLY OF EACH.
== END 2021-05-23 16:13 | disposition home health service (06) | DRG 699 ==
LOC: ER 12:48 → MEDS 12:49 → EDPENDDIS 05-16 12:37 → ENPENDDIS 05-16 12:37 → MEDS 05-23 16:13
PROVIDERS: Emergency Medicine; Family Medicine; Internal Medicine; ADMIT Internal Medicine
DX: T83.511A Infection and inflammatory reaction due to indwelling urethral catheter, initial encounter (principal); G81.91 Hemiplegia, unspecified affecting right dominant side; R47.01 Aphasia; N39.0 Urinary tract infection, site not specified; E86.0 Dehydration; D64.9 Anemia, unspecified; N40.1 Benign prostatic hyperplasia with lower urinary tract symptoms; R33.8 Other retention of urine; F50.9 Eating disorder, unspecified; Z98.890 Other specified postprocedural states; Y84.6 Urinary catheterization as the cause of abnormal reaction of the patient, or of later complication, without mention of misadventure at the time of the procedure
CPT/HCPCS: 36415; 51702; 70553; 80048; 80053; 81001; 83605; 84484; 85025; 87040; 87077; 87086; 87186; 92507; 92523; 93005; 93010; 96361-59; 96365-59; 96372; 96376; 97110; 97112; 97116; 97162; 97166; 97530; 97535; 99285-25; A9270; A9579; G0378; J0696; J1650; J7030

== ENCOUNTER 2021-06-02 17:39 | Emergency (ER) | payer OTHER ==
[~2021-06-02] VITALS: Ht 182.9 cm; Wt 72.6 kg
[~2021-06-02 17:39] MED LIST changes: +ACET325 PO; +ARTIFICIAL SALIVA PO; +ATOR40TA PO; +BISA10S PR; +DEXA4 PO; +DOCUZEN 8.6-501 EACH PO; +ENOX40I SC; +KEPPRA250 M2 PO; +LISI10 PO; +OXYC5 PO; +TAMS.4ER PO
[2021-06-02] MEDS ORDERED: CEPH500 PO (23:26)
== END 2021-06-02 23:57 | disposition home or self-care (01) ==
LOC: ER 17:39
DX: L03.113 Cellulitis of right upper limb (principal); I10 Essential (primary) hypertension; Z88.6 Allergy status to analgesic agent; Z88.5 Allergy status to narcotic agent
CPT/HCPCS: 93971; 99283; A9270

== ENCOUNTER 2021-12-31 09:52 | Emergency (ER) | payer OTHER ==
[~2021-12-31] VITALS: Ht 182.9 cm; Wt 72.6 kg
[~2021-12-31 09:52] MED LIST changes: +CEPH500 PO
[2021-12-31 10:22] LABS: BASOPHILS ABSOLUTE AUTO 0.03 K/mm3 (0.00-0.23); BASOPHILS PERCENT AUTO 1 % (0-2); EOSINOPHILS ABSOLUTE AUTO 0.02 K/mm3 (0.00-0.68); EOSINOPHILS PERCENT AUTO 0 % (0-6); Hematocrit 30.6 % (37.0-53.0); Hemoglobin 10.2 g/dL (13.5-17.5); Mean Corpuscular HGB 31.7 pg (26.0-34.0); Mean Corpuscular HGB Conc 33.3 g/dL (31.5-36.5); Mean Corpuscular Volume 95 fL (80-100); Mean Platelet Volume 9.3 fL (9.1-12.4); Platelet Count 146 K/mm3 (150-400); RDW Coefficient Variation 14.9 % (11.7-14.2); RDW Standard Deviation 53.1 fL (35.1-46.3); Red Blood Cell Count 3.22 M/mm3 (4.30-5.90); White Blood Cell Count 6.01 K/mm3 (4.00-11.30)
[2021-12-31 10:24] LABS: IMMATURE GRAN ABSOLUTE AUTO 0.02 K/mm3 (0.00-0.10); IMMATURE GRAN PERCENT AUTO 0 % (0-1); LYMPHOCYTES ABSOLUTE AUTO 3.11 K/mm3 (0.84-5.20); LYMPHOCYTES PERCENT AUTO 52 % (21-46); MONOCYTES ABSOLUTE AUTO 0.85 K/mm3 (0.16-1.47); MONOCYTES PERCENT AUTO 14 % (4-13); NEUTROPHILS ABSOLUTE AUTO 1.98 K/mm3 (1.96-9.15); NEUTROPHILS PERCENT AUTO 33 % (41-73)
[2021-12-31 10:34] LABS: Bun/Creatinine Ratio 11.6 (12.0-20.0); Calcium, Blood 8.7 mg/dL (8.5-10.1); Creatinine, Blood 1.29 mg/dL (0.60-1.20); Potassium, Blood 4.4 mmol/L (3.5-5.5)
[2021-12-31] MEDS ORDERED: FLUO10 PO (10:37)
[2021-12-31 11:32] LABS: BAND PERCENT MAN 1 % (0-8); BASOPHILS PERCENT MAN 0 % (0-2); EOSINOPHILS PERCENT MAN 0 % (0-6); LYMPHOCYTES ABSOLUTE MAN 3.96 K/mm3 (0.84-5.20); LYMPHOCYTES PERCENT MAN 66 % (21-46); MONOCYTES ABSOLUTE MAN 0.12 K/mm3 (0.16-1.47); MONOCYTES PERCENT MAN 2 % (4-13); NEUTROPHILS ABSOLUTE MAN 1.92 K/mm3 (1.96-9.15); SEG NEUTROPHILS PERCENT MAN 31 % (41-73); TOTAL CELLS COUNTED 100
== END 2021-12-31 12:10 | disposition home or self-care (01) ==
LOC: ER 09:52
PROVIDERS: Emergency Medicine
DX: E86.0 Dehydration (principal); I10 Essential (primary) hypertension; Z79.899 Other long term (current) drug therapy; Z88.5 Allergy status to narcotic agent
CPT/HCPCS: 36415; 80048; 82947; 85025; 93005; 93010; 99284-25; J7030

== ENCOUNTER → 2022-03-16 | Outpatient (CLI) | payer OTHER ==
[~2022-03-16] MED LIST changes: +FLUO10 PO
[2022-03-17 14:10] LABS: CORONAVIRUS (COVID19) CSH-NRL Negative (Negative)
== END | disposition home or self-care (01) ==
LOC: LAB SHORT 12:10 → LAB 12:10
PROVIDERS: Physician Assistant
DX: Z20.822 Contact with and (suspected) exposure to COVID-19 (principal)
CPT/HCPCS: U0003

== ENCOUNTER 2022-06-24 10:54 | Emergency (ER) | payer OTHER ==
[~2022-06-24] VITALS: Ht 182.9 cm; Wt 72.6 kg
[2022-06-24 11:49] LABS: Hematocrit 25.3 % (37.0-53.0); Hemoglobin 8.3 g/dL (13.5-17.5); Mean Corpuscular HGB 32.8 pg (26.0-34.0); Mean Corpuscular HGB Conc 32.8 g/dL (31.5-36.5); Mean Corpuscular Volume 100 fL (80-100); Mean Platelet Volume 9.3 fL (9.1-12.4); Platelet Count 190 K/mm3 (150-400); RDW Coefficient Variation 14.5 % (11.7-14.2); RDW Standard Deviation 53.1 fL (35.1-46.3); Red Blood Cell Count 2.53 M/mm3 (4.30-5.90); White Blood Cell Count 6.61 K/mm3 (4.00-11.30)
[2022-06-24 12:28] LABS: Albumin, Blood 3.3 g/dL (3.4-5.0); Albumin/Globulin Ratio 1.2 (0.8-1.8); Bun/Creatinine Ratio 15.7 (12.0-20.0); Calcium, Blood 8.8 mg/dL (8.5-10.1); Creatinine, Blood 0.83 mg/dL (0.60-1.20); Globulin, Blood 2.8 g/dL (2.2-4.0); Total Protein, Blood 6.1 g/dL (6.4-8.2)
[2022-06-24 12:36] LABS: BASOPHILS PERCENT MAN 0 % (0-2); EOSINOPHILS PERCENT MAN 0 % (0-6); LYMPHOCYTES ABSOLUTE MAN 5.61 K/mm3 (0.84-5.20); LYMPHOCYTES PERCENT MAN 85 % (21-46); MONOCYTES ABSOLUTE MAN 0.26 K/mm3 (0.16-1.47); MONOCYTES PERCENT MAN 4 % (4-13); NEUTROPHILS ABSOLUTE MAN 0.72 K/mm3 (1.96-9.15); SEG NEUTROPHILS PERCENT MAN 11 % (41-73); TOTAL CELLS COUNTED 100
[2022-06-24] MEDS ORDERED: DEXA2 PO (17:42)
== END 2022-06-24 19:14 | disposition home or self-care (01) ==
LOC: ER 10:54
PROVIDERS: Physician Assistant
DX: D32.0 Benign neoplasm of cerebral meninges (principal); D64.9 Anemia, unspecified; M81.0 Age-related osteoporosis without current pathological fracture; M47.816 Spondylosis without myelopathy or radiculopathy, lumbar region; M43.16 Spondylolisthesis, lumbar region; I10 Essential (primary) hypertension; Z88.5 Allergy status to narcotic agent; Z79.899 Other long term (current) drug therapy; Z79.52 Long term (current) use of systemic steroids
CPT/HCPCS: 72100; 72170; 80053; 85025; 99285-25; J1100

== ENCOUNTER 2022-07-13 04:29 | Emergency (ER) | payer OTHER ==
[~2022-07-13] VITALS: Ht 180.3 cm; Wt 77.1 kg
[~2022-07-13 04:29] MED LIST changes: +DEXA2 PO
== END 2022-07-13 08:33 | disposition home or self-care (01) ==
LOC: ER 04:29
DX: R56.9 Unspecified convulsions (principal); I10 Essential (primary) hypertension; Z88.5 Allergy status to narcotic agent; Z88.8 Allergy status to other drugs, medicaments and biological substances; Z79.899 Other long term (current) drug therapy
CPT/HCPCS: J1953